=== PATIENT | male | born 1975 | race Caucasian/White ===

== ENCOUNTER 2019-01-11 08:29 | Emergency (ER) | payer OTHER ==
[2019-01-11 08:32] VITALS: BP 126/63; PULSE 69; TEMP 98.7; BMI 26.6
[2019-01-11] MEDS ORDERED: DIPHTH,PERTUSS(ACELL),TET 0.5 ML DISP.SYRIN IM ONE ×2 (08:32→08:36)
--- NOTE | 2019-01-11 08:37 | PDOC ---
History of Present Illness - General Chief Complaint: Laceration Stated Complaint: CUT MY FINGER Time Seen by Provider: 01/11/19 08:32 History Source: Patient (Right mid finger accidental laceration with a robert blade) Past History - Past Medical History Allergies/Adverse Reactions: Allergies Allergy/AdvReac Type Severity Reaction Status Date / Time amoxicillin [Amoxicillin] Allergy Rash Verified 01/11/19 08:29 Penicillins Allergy Verified 01/11/19 08:30 Home Medications: Ambulatory Orders No Home Medications 0 dose .ROUTE UTDICT 03/08/12 - Surgical History Abdominal Surgery: Yes (HERNIA REPAIR) - Immunization History Td Vaccination: No (UNKNOWN) - Suicide/Smoking/Psychosocial Hx Smoking Status: No Smoking History: Never smoked Number of Cigarettes Smoked Daily: 0 *DC/Admit/Observation/Transfer Diagnosis at time of Disposition: Finger laceration Qualifiers: Encounter type: initial encounter Finger: middle finger Damage to nail status: without damage Foreign body presence: without foreign body Laterality: right Qualified Code(s): S61.212A - Laceration without foreign body of right middle finger without damage to nail, initial encounter - Discharge Dispostion Disposition: HOME Condition at time of disposition: Stable Decision to Admit order: No - Referrals - Patient Instructions Printed Discharge Instructions: DI for Laceration Repair, DTaP Vaccine - Post Discharge Activity
== END 2019-01-11 09:11 | disposition home or self-care (01) ==
LOC: FER 08:29
PROC: 3E0234Z Introduction of Serum, Toxoid and Vaccine into Muscle, Percutaneous Approach (ICD-10-PCS; principal; 2019-01-11)
DX: S61.212A Laceration without foreign body of right middle finger without damage to nail, initial encounter (principal); W26.0XXA Contact with knife, initial encounter; Y93.89 Activity, other specified; Y92.89 Other specified places as the place of occurrence of the external cause
CPT/HCPCS: 90715; 99282-25

== ENCOUNTER 2023-11-16 16:22 | Emergency (ER) | payer OTHER ==
[2023-11-16] MEDS: ACETAMINOPHEN 325 MG TABLET (FP) PO ONE (17:17)
[2023-11-16] MEDS ORDERED: ACETAMINOPHEN 500 MG TABLET (FP) ONE (17:19)
[2023-11-16 17:36] VITALS: BP 125/71; PULSE 77; RESP 20; TEMP 98; BMI 25.0
== END 2023-11-16 17:36 | disposition home or self-care (01) ==
LOC: FER 16:22
DX: S69.91XA Unspecified injury of right wrist, hand and finger(s), initial encounter (principal); W23.0XXA Caught, crushed, jammed, or pinched between moving objects, initial encounter
CPT/HCPCS: 73130-TC-RT-FY; 99283-25